=== PATIENT | male | born 1995 | race Caucasian/White ===

== ENCOUNTER 2019-07-16 05:53 | Emergency (ER) | payer SELFPAY ==
[2019-07-16] MEDS ORDERED: Lidocaine 2% w/Epinephrine 1:200K 20 ML VIAL ONE (06:31)
[2019-07-16] MEDS ORDERED: Adacel (T-DAP) 0.5 ML SYRINGE ONE (07:10)
[2019-07-16] MEDS ORDERED: Bacitracin 1 PK ONE (07:24)
--- NOTE | 2019-07-16 07:32 | RAD ---
XR Hand Rt 3 View STANDARD: 07/16/2019 6:59 AM CLINICAL INDICATION: Right hand laceration COMPARISON: None. FINDINGS: Bones: No acute osseous abnormality. Joints: Joint spaces are preserved. Soft Tissue: Soft tissues are normal appearing. No radiopaque foreign body. IMPRESSION: No acute osseous abnormality..
== END 2019-07-16 07:34 | disposition home or self-care (01) ==
LOC: MADERS 05:53
DX: S61.411A Laceration without foreign body of right hand, initial encounter (principal); F17.210 Nicotine dependence, cigarettes, uncomplicated; Z23 Encounter for immunization; W26.8XXA Contact with other sharp object(s), not elsewhere classified, initial encounter
CPT/HCPCS: 12004; 90471; 90715